=== PATIENT | male | born 1965 | race Caucasian/White ===

== ENCOUNTER 2016-12-31 11:25 | Inpatient (IN) | payer OTHER ==
[2016-12-31 12:43] VITALS: BMI 27.8
--- NOTE | 2016-12-31 15:12 | HP ---
CIWA Score - CIWA Score Nausea/Vomitin Muscle Tremors: 5 Anxiety: 5 Agitation: 3 Paroxysmal Sweats: 1-Minimal Palms Moist Orientation: 0-Oriented Tacttile Disturbances: 3-Moderate Itch/Numb/Burn Auditory Disturbances: 0-None Visual Disturbances: 0-None Headache: 0-None Present CIWA-Ar Total Score: 20 Admission ROS BHS - HPI Chief Complaint: DETOX TX FOR ALCOHOL AND COCAINE DEPENDENCE Allergies/Adverse Reactions: Allergies Allergy/AdvReac Type Severity Reaction Status Date / Time No Known Allergies Allergy Verified 12/31/16 13:07 History of Present Illness: 51 Y/O H/M WITH A HX OF ALCOHOL AND COCAINE DEPENDENCE SEEKING DETOX TX Exam Limitations: No Limitations, Intoxication - Ebola screening Have you traveled outside of the country in the last 21 days: No Have you had contact with anyone from an Ebola affected area: No Have you been sick,other than usual withdrawal symptoms: No - Review of Systems Constitutional: Chills, Loss of Appetite, Night Sweats, Changes in sleep, Unintentional Wgt. Loss EENT: reports: Blurred Vision, Tearing, Nose Congestion, Dental Problems ( DENTURES,KENRICK.) Respiratory: reports: No Symptoms reported Cardiac: reports: Lightheadedness GI: reports: Diarrhea, Nausea, Poor Appetite, Poor Fluid Intake, Vomiting : reports: No Symptoms Reported Musculoskeletal: reports: Back Pain, Joint Pain, Muscle Pain Integumentary: reports: Dryness (HX PSORIASIS), Flushing Neuro: reports: Headache, Tremors, Unsteady Gait, Dizziness Endocrine: reports: No Symptoms Reported Hematology: reports: No Symptoms Reported Psychiatric: reports: Orientated x3, Anxious, Depressed Other Systems: Reviewed and Negative Patient History - Patient Medical History Hx Anemia: No Hx Asthma: No Hx Chronic Obstructive Pulmonary Disease (COPD): No Hx Cancer: No Hx Cardiac Disorders: Yes (heart murmur) Hx Congestive Heart Failure: No Hx Hypertension: Yes (ON MEDS) Hx Hypercholesterolemia: No Hx Pacemaker: No HX Cerebrovascular Accident: No Hx Seizures: No Hx Dementia: No Hx Diabetes: No Hx Gastrointestinal Disorders: No Hx Liver Disease: No Hx Genitourinary Disorders: No Hx Sexually Transmitted Disorders: No Hx Renal Disease (ESRD): No Hx Thyroid Disease: No Hx Human Immunodeficiency Virus (HIV): No (06/09; NEGATIVE) Hx Hepatitis C: No Hx Depression: No Hx Suicide Attempt: No Hx Bipolar Disorder: No Hx Schizophrenia: No - Patient Surgical History Past Surgical History: Yes Hx Neurologic Surgery: No Hx Cataract Extraction: No Hx Cardiac Surgery: No Hx Lung Surgery: No Hx Breast Surgery: No Hx Breast Biopsy: No Hx Abdominal Surgery: No Hx Appendectomy: No Hx Cholecystectomy: No Hx Genitourinary Surgery: No Hx Orthopedic Surgery: No Other Surgical History: FACIAL TRUAMA FROM FALL ON INTOXICATION--INJURY REPAIR IN 10/2016 Anesthesia Reaction: No - PPD History Previous Implant?: Yes Documented Results: Negative w/proof Implanted On Prior [facility] Admission?: Yes Date: 08/25/15 Results: 0 mm PPD to be Administered?: Yes - Reproductive History Patient is a Female of Child Bearing Age (11 -55 yrs old): No (MALE) - Smoking Cessation Smoking history: Never smoked Have you smoked in the past 12 months: No Hx Chewing Tobacco Use: No Initiated information on smoking cessation: No - Substance & Tx. History Hx Alcohol Use: Yes (BEER) Hx Substance Use: Yes (COCAINE) Hx Substance Use Treatment: Yes ([facility]) - Substances Abused Cocaine Route: Inhalation Frequency: 1-2 times per week Amount used: $20 Age of first use: 18 Date of Last Use: 12/24/16 Alcohol-beer Route: Oral Frequency: Daily Amount used: 3-5 (40 oz.) Age of first use: 15 Date of Last Use: 12/31/16 Family Disease History - Family Disease History Family Disease History: Other: Father (ETOH DEPENDENT) Admission Physical Exam BHS - Vital Signs Vital Signs: Vital Signs - 24 hr 12/31/16 12:40 Temperature 97.3 F L Pulse Rate 101 H Respiratory 18 Rate Blood Pressure 143/94 - Physical General Appearance: Yes: Moderate Distress, Alcohol on Breath, Intoxicated, Irritable, Anxious HEENTM: Yes: EOMI, Normocephalic, RONNIE, Pharynx Normal, Photophobia, Nasal Congestion, Rhinorrhea, Other (FACIAL SCAR ON RIGHT SIDE S/P TRUAMA) Respiratory: Yes: Chest Non-Tender, Lungs Clear, Normal Breath Sounds, No Respiratory Distress Neck: Yes: Supple, Trachea in good position Breast: Yes: Breast Exam Deferred Cardiology: Yes: Regular Rhythm, S1, S2, Tachycardia Abdominal: Yes: Normal Bowel Sounds, Non Tender, Soft Genitourinary: Yes: Other (N/C) Back: Yes: Within Normal Limits Musculoskeletal: Yes: full range of Motion, Gait Steady Extremities: Yes: Normal Range of Motion, Non-Tender Neurological: Yes: manager storage II-XII NML intact, Fully Oriented, Alert Integumentary: Yes: Dry, Warm, Other (FACIAL SKIN FLUSHING) Lymphatic: Yes: Within Normal Limits - Diagnostic (1) Alcohol dependence with withdrawal Current Visit: Yes Status: Acute Qualifiers: Complication of substance-induced condition: uncomplicated Qualified Code(s): F10.230 - Alcohol dependence with withdrawal, uncomplicated (2) Cocaine abuse Current Visit: Yes Status: Chronic (3) Essential hypertension Current Visit: Yes Status: Chronic (4) Psoriasis Current Visit: Yes Status: Chronic Cleared for Admission [facility] - Detox or Rehab [facility] Level of Care: Medically Managed Detox Regimen/Protocol: Librium [facility] Breath Alcohol Content Breath Alcohol Content: 0.137 Urine Drug Screen - Results Drug Screen Negative: Yes
[2016-12-31] MEDS ORDERED: ACETAMINOPHEN 325 MG TABLET (FP) PO PRN (15:20)
[2016-12-31] MEDS ORDERED: MAG HYDROX/AL HYDROX/SIMETH 30 ML UNIT-DOSE CUP PO PRN (15:20)
[2016-12-31] MEDS ORDERED: MENTHOL/PHENOL 1 EACH UD MM PRN (15:20)
[2016-12-31] MEDS ORDERED: IBUPROFEN 400 MG TABLET (FP) PO PRN (15:20)
[2016-12-31] MEDS ORDERED: MAGNESIUM CITRATE 300 ML BOTTLE PO PRN (15:20)
[2016-12-31] MEDS ORDERED: P-EPHED 60MG/TRIPROLIDI 2.5MG TABLET PO PRN (15:20)
[2016-12-31] MEDS ORDERED: guaiFENesin/D-METHORPHAN HB 10 ML UNIT-DOSE CUPS PO PRN (15:20)
[2016-12-31] MEDS ORDERED: MAGNESIUM HYDROX 2400MG/30ML ORAL SUSPENSION 30 ML CUP PO PRN (15:20)
[2016-12-31] MEDS ORDERED: LOPERAMIDE HCL 2 MG CAPSULE PO PRN (15:20)
[2016-12-31] MEDS ORDERED: chlordiazePOXIDE HCL 25 MG CAPSULE PO ONE (15:24)
[2016-12-31] MEDS: GABAPENTIN 100 MG CAPSULE (FP) PO SCH ×2 (17:26→22:11)
[2016-12-31] MEDS: chlordiazePOXIDE HCL 25 MG CAPSULE PO SCH ×2 (17:26→22:11)
[2016-12-31] MEDS: ENALAPRIL MALEATE 10 MG TABLET (FP) PO SCH (17:26)
[2016-12-31 20:31] LABS: URINE APPEARANCE CLEAR; URINE BILIRUBIN NEGATIVE (NEGATIVE); URINE BLOOD NEGATIVE (NEGATIVE); URINE COLOR LTYELLOW; URINE GLUCOSE (UA) NEGATIVE (NEGATIVE); URINE KETONE NEGATIVE (NEGATIVE); URINE LEUK ESTERASE NEGATIVE (NEGATIVE); URINE NITRITE NEGATIVE (NEGATIVE); URINE PROTEIN NEGATIVE (NEGATIVE); URINE UROBILINOGEN NEGATIVE E.U./dl (0.2-1.0)
[2016-12-31] MEDS: TRIAMCINOLONE ACET 0.1% CREAM 80 GM TUBE TP SCH (22:10)
[2016-12-31] MEDS: THIAMINE HCL 100 MG TABLET (FP) PO SCH (22:10)
[2016-12-31] MEDS: diphenhydrAMINE HCL 50 MG CAPSULE PO PRN (22:11)
[2017-01-01] MEDS: chlordiazePOXIDE HCL 25 MG CAPSULE PO SCH ×4 (05:35→22:22)
[2017-01-01] MEDS: GABAPENTIN 100 MG CAPSULE (FP) PO SCH ×3 (05:35→22:22)
[2017-01-01 09:57] LABS: ALK PHOS 112 U/L (45-117); ANION GAP 8 (8-16); BILIRUBIN,TOTAL 0.4 mg/dL (0.2-1.0); CALCIUM 9.1 mg/dL (8.5-10.1); CO2 28 mmol/L (21-32); CREATININE 0.7 mg/dL (0.7-1.3); GLUCOSE,RANDOM 151 mg/dL (74-106); SGOT/AST 42 U/L (15-37); SGPT/ALT 32 U/L (12-78)
[2017-01-01 10:06] LABS: MCH 29.7 pg (25.7-33.7); MCHC 33.4 g/dl (32.0-35.9); MEAN PLT VOLUME 7.7 fl (7.5-11.1); PLATELET COUNT 182 K/MM3 (134-434); RDW 13.8 % (11.9-15.9); WHITE BLOOD COUNT 6.9 K/mm3 (4.0-10.0)
[2017-01-01] MEDS: PRENATAL VITAMINS W/ FOLIC ACID TABLET (FP) PO SCH (10:20)
[2017-01-01] MEDS: ENALAPRIL MALEATE 10 MG TABLET (FP) PO SCH (10:20)
[2017-01-01] MEDS: TRIAMCINOLONE ACET 0.1% CREAM 80 GM TUBE TP SCH ×2 (10:21→22:23)
--- NOTE | 2017-01-01 10:30 | PN ---
[facility] CIWA - CIWA Score Nausea/Vomitin-No Nausea/No Vomiting Muscle Tremors: 6 Anxiety: 4-Mod. Anxious/Guarded Agitation: 3 Paroxysmal Sweats: 2 Orientation: 0-Oriented Tacttile Disturbances: 3-Moderate Itch/Numb/Burn Auditory Disturbances: 0-None Visual Disturbances: 0-None Headache: 0-None Present CIWA-Ar Total Score: 18 BHS Progress Note (SOAP) Subjective: ANXIETY,TREMORS,SWEATS. Objective: 01/01/17 10:24 Vital Signs Temperature 96.0 F L 01/01/17 09:44 Pulse Rate 91 H 01/01/17 09:44 Respiratory Rate 18 01/01/17 09:44 Blood Pressure 155/97 01/01/17 09:44 O2 Sat by Pulse Oximetry (%) Laboratory Last Values WBC 6.9 K/mm3 (4.0-10.0) 01/01/17 06:00 RBC 4.57 M/mm3 (4.00-5.60) 01/01/17 06:00 Hgb 13.6 GM/dL (11.7-16.9) 01/01/17 06:00 Hct 40.7 % (35.4-49) 01/01/17 06:00 MCV 89.0 fl (80-96) 01/01/17 06:00 MCHC 33.4 g/dl (32.0-35.9) 01/01/17 06:00 RDW 13.8 % (11.9-15.9) 01/01/17 06:00 Plt Count 182 K/MM3 (134-434) D 01/01/17 06:00 MPV 7.7 fl (7.5-11.1) 01/01/17 06:00 Sodium 137 mmol/L (136-145) 01/01/17 06:00 Potassium 4.2 mmol/L (3.5-5.1) 01/01/17 06:00 Chloride 101 mmol/L (98-107) 01/01/17 06:00 Carbon Dioxide 28 mmol/L (21-32) 01/01/17 06:00 Anion Gap 8 (8-16) 01/01/17 06:00 BUN 7 mg/dL (7-18) 01/01/17 06:00 Creatinine 0.7 mg/dL (0.7-1.3) 01/01/17 06:00 Creat Clearance w eGFR > 60 (>60) 01/01/17 06:00 Random Glucose 151 mg/dL (74-106) H D 01/01/17 06:00 Calcium 9.1 mg/dL (8.5-10.1) 01/01/17 06:00 Total Bilirubin 0.4 mg/dL (0.2-1.0) D 01/01/17 06:00 AST 42 U/L (15-37) H 01/01/17 06:00 ALT 32 U/L (12-78) D 01/01/17 06:00 Alkaline Phosphatase 112 U/L (45-117) 01/01/17 06:00 Total Protein 8.0 g/dl (6.4-8.2) 01/01/17 06:00 Albumin 4.0 g/dl (3.4-5.0) 01/01/17 06:00 Urine Color Ltyellow 12/31/16 13:00 Urine Appearance Clear 12/31/16 13:00 Urine pH 5.0 (5.0-8.0) 12/31/16 13:00 Ur Specific [place] 1.011 (1.001-1.035) 12/31/16 13:00 Urine Protein Negative (NEGATIVE) 12/31/16 13:00 Urine Glucose (UA) Negative (NEGATIVE) 12/31/16 13:00 Urine Ketones Negative (NEGATIVE) 12/31/16 13:00 Urine Blood Negative (NEGATIVE) 12/31/16 13:00 Urine Nitrite Negative (NEGATIVE) 12/31/16 13:00 Urine Bilirubin Negative (NEGATIVE) 12/31/16 13:00 Urine Urobilinogen Negative E.U./dl (0.2-1.0) 12/31/16 13:00 Ur Leukocyte Esterase Negative (NEGATIVE) 12/31/16 13:00 Hepatitis C Antibody 0.2 s/co ratio (0.0-0.9) 12/31/16 13:00 Assessment: 01/01/17 10:25 WITHDRAWAL SX Plan: CONTINUE DETOX ADDED LIBRIUM 50 MG PO AT 2 PM TODAY
--- NOTE | 2017-01-01 10:59 | EKG ---
Test Reason : Blood Pressure : / mmHG Vent. Rate : 091 BPM Atrial Rate : 091 BPM P-R Int : 128 ms QRS Dur : 096 ms QT Int : 342 ms P-R-T Axes : 056 028 028 degrees QTc Int : 420 ms NORMAL SINUS RHYTHM POSSIBLE LEFT ATRIAL ENLARGEMENT SEPTAL INFARCT , AGE UNDETERMINED ABNORMAL ECG NO PREVIOUS ECGS AVAILABLE Confirmed by ANUSHA GLASS MD ([id number]) on 01/01/2017 10:59:16 AM Referred By: Confirmed By:ANUSHA GLASS MD
[2017-01-01] MEDS ORDERED: chlordiazePOXIDE HCL 25 MG CAPSULE PO ONE (14:00)
--- NOTE | 2017-01-01 15:58 | EKG ---
Test Reason : Blood Pressure : / mmHG Vent. Rate : 083 BPM Atrial Rate : 083 BPM P-R Int : 134 ms QRS Dur : 096 ms QT Int : 364 ms P-R-T Axes : 059 017 029 degrees QTc Int : 427 ms NORMAL SINUS RHYTHM NORMAL ECG WHEN COMPARED WITH ECG OF 31-DEC-2016 17:53, NO SIGNIFICANT CHANGE WAS FOUND Confirmed by ANUSHA GLASS MD ([id number]) on 01/01/2017 3:57:45 PM Referred By: Confirmed By:ANUSHA GLASS MD
[2017-01-01] MEDS: hydrOXYzine PAMOATE 25 MG CAPSULE (FP) PO PRN (17:34)
[2017-01-01] MEDS: chlordiazePOXIDE HCL 25 MG CAPSULE PO PRN (21:30)
[2017-01-01] MEDS: diphenhydrAMINE HCL 50 MG CAPSULE PO PRN (22:23)
[2017-01-01] MEDS: THIAMINE HCL 100 MG TABLET (FP) PO SCH (23:10)
[2017-01-02] MEDS: chlordiazePOXIDE HCL 25 MG CAPSULE PO SCH ×2 (05:29→10:34)
[2017-01-02] MEDS: GABAPENTIN 100 MG CAPSULE (FP) PO SCH ×3 (05:29→22:29)
[2017-01-02] MEDS: TRIAMCINOLONE ACET 0.1% CREAM 80 GM TUBE TP SCH ×2 (10:34→22:56)
[2017-01-02] MEDS: ENALAPRIL MALEATE 10 MG TABLET (FP) PO SCH ×2 (10:34→22:29)
[2017-01-02] MEDS: PRENATAL VITAMINS W/ FOLIC ACID TABLET (FP) PO SCH (10:34)
--- NOTE | 2017-01-02 10:45 | PN ---
S CIWA - CIWA Score Nausea/Vomitin-Mild Nausea/No Vomiting Muscle Tremors: 5 Anxiety: 4-Mod. Anxious/Guarded Agitation: 5 Paroxysmal Sweats: 3 Orientation: 0-Oriented Tacttile Disturbances: 0-None Auditory Disturbances: 0-None Visual Disturbances: 0-None Headache: 0-None Present CIWA-Ar Total Score: 18 BHS Progress Note (SOAP) Subjective: Anxiety,tremors,sweating,interrupted sleep,restless Objective: 01/02/17 10:44 Vital Signs - 8 hr 01/02/17 01/02/17 01/02/17 03:30 06:47 09:47 Temperature 96.4 F L 97.2 F L Pulse Rate 84 99 H Respiratory 18 18 20 Rate Blood Pressure 158/103 160/106 Laboratory Tests 12/31/16 12/31/16 01/01/17 13:00 13:00 06:00 WBC 6.9 RBC 4.57 Hgb 13.6 Hct 40.7 MCV 89.0 MCHC 33.4 RDW 13.8 Plt Count 182 D MPV 7.7 Sodium Potassium Chloride Carbon Dioxide Anion Gap BUN Creatinine Creat Clearance w eGFR Random Glucose Calcium Total Bilirubin AST ALT Alkaline Phosphatase Total Protein Albumin Urine Color Ltyellow Urine Appearance Clear Urine pH 5.0 Ur Specific [place] 1.011 Urine Protein Negative Urine Glucose (UA) Negative Urine Ketones Negative Urine Blood Negative Urine Nitrite Negative Urine Bilirubin Negative Urine Urobilinogen Negative Ur Leukocyte Esterase Negative RPR Titer Hepatitis C Antibody 0.2 01/01/17 01/01/17 06:00 06:00 WBC RBC Hgb Hct MCV MCHC RDW Plt Count MPV Sodium 137 Potassium 4.2 Chloride 101 Carbon Dioxide 28 Anion Gap 8 BUN 7 Creatinine 0.7 Creat Clearance w eGFR > 60 Random Glucose 151 H D Calcium 9.1 Total Bilirubin 0.4 D AST 42 H ALT 32 D Alkaline Phosphatase 112 Total Protein 8.0 Albumin 4.0 Urine Color Urine Appearance Urine pH Ur Specific [place] Urine Protein Urine Glucose (UA) Urine Ketones Urine Blood Urine Nitrite Urine Bilirubin Urine Urobilinogen Ur Leukocyte Esterase RPR Titer Nonreactive Hepatitis C Antibody labs noted Assessment: 01/02/17 10:44 Withdrawal sx. Plan: Copntinue detox
[2017-01-02] MEDS ORDERED: chlordiazePOXIDE HCL 25 MG CAPSULE PO ONE (14:00)
[2017-01-02] MEDS: chlordiazePOXIDE 5 MG CAPSULE PO SCH ×2 (17:55→22:29)
[2017-01-02] MEDS: hydrOXYzine PAMOATE 25 MG CAPSULE (FP) PO PRN (17:55)
[2017-01-02] MEDS: THIAMINE HCL 100 MG TABLET (FP) PO SCH (22:29)
[2017-01-02] MEDS: chlordiazePOXIDE HCL 25 MG CAPSULE PO PRN (22:30)
[2017-01-02] MEDS: diphenhydrAMINE HCL 50 MG CAPSULE PO PRN (22:32)
[2017-01-03] MEDS: chlordiazePOXIDE 5 MG CAPSULE PO SCH ×2 (05:44→10:25)
[2017-01-03] MEDS: GABAPENTIN 100 MG CAPSULE (FP) PO SCH ×3 (05:44→22:23)
[2017-01-03] MEDS: PRENATAL VITAMINS W/ FOLIC ACID TABLET (FP) PO SCH (10:25)
[2017-01-03] MEDS: ENALAPRIL MALEATE 10 MG TABLET (FP) PO SCH ×2 (10:25→22:23)
[2017-01-03] MEDS: TRIAMCINOLONE ACET 0.1% CREAM 80 GM TUBE TP SCH ×2 (10:25→22:22)
[2017-01-03] MEDS: chlordiazePOXIDE HCL 25 MG CAPSULE PO PRN (12:08)
--- NOTE | 2017-01-03 13:48 | PN ---
BHS Progress Note (SOAP) Subjective: Interrupted Sleep, Restlessness, Tremors, Body Aches Objective: Vital Signs Period Temp Pulse Resp BP Sys/Estrada Pulse Ox Last 24 Hr 95.6 F-97.4 F 86-120 18-20 139-152/83-100 Laboratory Last Values WBC 6.9 K/mm3 (4.0-10.0) 01/01/17 06:00 RBC 4.57 M/mm3 (4.00-5.60) 01/01/17 06:00 Hgb 13.6 GM/dL (11.7-16.9) 01/01/17 06:00 Hct 40.7 % (35.4-49) 01/01/17 06:00 MCV 89.0 fl (80-96) 01/01/17 06:00 MCHC 33.4 g/dl (32.0-35.9) 01/01/17 06:00 RDW 13.8 % (11.9-15.9) 01/01/17 06:00 Plt Count 182 K/MM3 (134-434) D 01/01/17 06:00 MPV 7.7 fl (7.5-11.1) 01/01/17 06:00 Sodium 137 mmol/L (136-145) 01/01/17 06:00 Potassium 4.2 mmol/L (3.5-5.1) 01/01/17 06:00 Chloride 101 mmol/L (98-107) 01/01/17 06:00 Carbon Dioxide 28 mmol/L (21-32) 01/01/17 06:00 Anion Gap 8 (8-16) 01/01/17 06:00 BUN 7 mg/dL (7-18) 01/01/17 06:00 Creatinine 0.7 mg/dL (0.7-1.3) 01/01/17 06:00 Creat Clearance w eGFR > 60 (>60) 01/01/17 06:00 Random Glucose 151 mg/dL (74-106) H D 01/01/17 06:00 Calcium 9.1 mg/dL (8.5-10.1) 01/01/17 06:00 Total Bilirubin 0.4 mg/dL (0.2-1.0) D 01/01/17 06:00 AST 42 U/L (15-37) H 01/01/17 06:00 ALT 32 U/L (12-78) D 01/01/17 06:00 Alkaline Phosphatase 112 U/L (45-117) 01/01/17 06:00 Total Protein 8.0 g/dl (6.4-8.2) 01/01/17 06:00 Albumin 4.0 g/dl (3.4-5.0) 01/01/17 06:00 Urine Color Ltyellow 12/31/16 13:00 Urine Appearance Clear 12/31/16 13:00 Urine pH 5.0 (5.0-8.0) 12/31/16 13:00 Ur Specific [place] 1.011 (1.001-1.035) 12/31/16 13:00 Urine Protein Negative (NEGATIVE) 12/31/16 13:00 Urine Glucose (UA) Negative (NEGATIVE) 12/31/16 13:00 Urine Ketones Negative (NEGATIVE) 12/31/16 13:00 Urine Blood Negative (NEGATIVE) 12/31/16 13:00 Urine Nitrite Negative (NEGATIVE) 12/31/16 13:00 Urine Bilirubin Negative (NEGATIVE) 12/31/16 13:00 Urine Urobilinogen Negative E.U./dl (0.2-1.0) 12/31/16 13:00 Ur Leukocyte Esterase Negative (NEGATIVE) 12/31/16 13:00 RPR Titer Nonreactive (NONREACTIVE) 01/01/17 06:00 Hepatitis C Antibody 0.2 s/co ratio (0.0-0.9) 12/31/16 13:00 Assessment: withdrawal symptoms Plan: Continue Detox
[2017-01-03] MEDS: chlordiazePOXIDE HCL 10 MG CAPSULE PO SCH ×2 (18:00→22:23)
[2017-01-03] MEDS: diphenhydrAMINE HCL 50 MG CAPSULE PO PRN (22:24)
[2017-01-03] MEDS: THIAMINE HCL 100 MG TABLET (FP) PO SCH (22:25)
[2017-01-04] MEDS: GABAPENTIN 100 MG CAPSULE (FP) PO SCH (06:01)
[2017-01-04] MEDS: chlordiazePOXIDE HCL 10 MG CAPSULE PO SCH (06:01)
[2017-01-04 06:49] VITALS: BP 145/99; PULSE 98; TEMP 97.1
[2017-01-04] MEDS: PRENATAL VITAMINS W/ FOLIC ACID TABLET (FP) PO SCH (09:30)
[2017-01-04] MEDS: ENALAPRIL MALEATE 10 MG TABLET (FP) PO SCH (09:30)
--- NOTE | 2017-01-04 19:41 | DS ---
[facility] Detox Discharge Summary Admission Date: 12/31/16 Discharge Date: 01/04/17 - History Present History: Alcohol Dependence, Cocaine Dependence Pertinent Past History: HTN Psoriasis - Physical Exam Results Vital Signs: Vital Signs Temperature 97.1 F L 01/04/17 06:48 Pulse Rate 98 H 01/04/17 06:48 Respiratory Rate 18 01/04/17 06:48 Blood Pressure 145/99 01/04/17 06:48 O2 Sat by Pulse Oximetry (%) Pertinent Admission Physical Exam Findings: Withdrawal sx. Laboratory Last Values WBC 6.9 K/mm3 (4.0-10.0) 01/01/17 06:00 RBC 4.57 M/mm3 (4.00-5.60) 01/01/17 06:00 Hgb 13.6 GM/dL (11.7-16.9) 01/01/17 06:00 Hct 40.7 % (35.4-49) 01/01/17 06:00 MCV 89.0 fl (80-96) 01/01/17 06:00 MCHC 33.4 g/dl (32.0-35.9) 01/01/17 06:00 RDW 13.8 % (11.9-15.9) 01/01/17 06:00 Plt Count 182 K/MM3 (134-434) D 01/01/17 06:00 MPV 7.7 fl (7.5-11.1) 01/01/17 06:00 Sodium 137 mmol/L (136-145) 01/01/17 06:00 Potassium 4.2 mmol/L (3.5-5.1) 01/01/17 06:00 Chloride 101 mmol/L (98-107) 01/01/17 06:00 Carbon Dioxide 28 mmol/L (21-32) 01/01/17 06:00 Anion Gap 8 (8-16) 01/01/17 06:00 BUN 7 mg/dL (7-18) 01/01/17 06:00 Creatinine 0.7 mg/dL (0.7-1.3) 01/01/17 06:00 Creat Clearance w eGFR > 60 (>60) 01/01/17 06:00 Random Glucose 151 mg/dL (74-106) H D 01/01/17 06:00 Calcium 9.1 mg/dL (8.5-10.1) 01/01/17 06:00 Total Bilirubin 0.4 mg/dL (0.2-1.0) D 01/01/17 06:00 AST 42 U/L (15-37) H 01/01/17 06:00 ALT 32 U/L (12-78) D 01/01/17 06:00 Alkaline Phosphatase 112 U/L (45-117) 01/01/17 06:00 Total Protein 8.0 g/dl (6.4-8.2) 01/01/17 06:00 Albumin 4.0 g/dl (3.4-5.0) 01/01/17 06:00 Urine Color Ltyellow 12/31/16 13:00 Urine Appearance Clear 12/31/16 13:00 Urine pH 5.0 (5.0-8.0) 12/31/16 13:00 Ur Specific [place] 1.011 (1.001-1.035) 12/31/16 13:00 Urine Protein Negative (NEGATIVE) 12/31/16 13:00 Urine Glucose (UA) Negative (NEGATIVE) 12/31/16 13:00 Urine Ketones Negative (NEGATIVE) 12/31/16 13:00 Urine Blood Negative (NEGATIVE) 12/31/16 13:00 Urine Nitrite Negative (NEGATIVE) 12/31/16 13:00 Urine Bilirubin Negative (NEGATIVE) 12/31/16 13:00 Urine Urobilinogen Negative E.U./dl (0.2-1.0) 12/31/16 13:00 Ur Leukocyte Esterase Negative (NEGATIVE) 12/31/16 13:00 RPR Titer Nonreactive (NONREACTIVE) 01/01/17 06:00 Hepatitis C Antibody 0.2 s/co ratio (0.0-0.9) 12/31/16 13:00 labs noted - Treatment Hospital Course: Detox Protocol Followed, Detoxed Safely, Responded well, Discharged Condition Good, Rehab Referral Accepted - Medication Discharge Medications: Ambulatory Orders Clobetasol Prop 0.05% Top Cr [Temovate (Nf)] 30 gm NR BID 12/31/16 Enalapril Maleate [Vasotec] 20 mg PO DAILY 12/31/16 Gabapentin [Neurontin -] 100 mg PO TID 12/31/16 Unobtainable [Unobtainable] 12/31/16 - Diagnosis (1) Alcohol dependence with withdrawal Status: Acute Qualifiers: Complication of substance-induced condition: uncomplicated Qualified Code(s): F10.230 - Alcohol dependence with withdrawal, uncomplicated (2) Essential hypertension Status: Chronic (3) Psoriasis Status: Chronic (4) Cocaine dependence, uncomplicated Status: Acute - AMA Did Patient Leave Against Medical Advice: No
== END 2017-01-04 09:33 | disposition home or self-care (01) | DRG 774 ==
LOC: YASAS 11:25 → Y3N 14:36
PROVIDERS: ADMIT Internal Medicine; ATTEND Internal Medicine
PROC: HZ2ZZZZ Detoxification Services for Substance Abuse Treatment (ICD-10-PCS; principal; 2017-01-04)
DX: F10.230 Alcohol dependence with withdrawal, uncomplicated (principal); F14.20 Cocaine dependence, uncomplicated; I10 Essential (primary) hypertension; L40.9 Psoriasis, unspecified
CPT/HCPCS: 36415; 80053; 81003; 85027; 86593; 93005; 93010

== ENCOUNTER 2017-02-20 10:43 | Inpatient (IN) | payer OTHER ==
--- NOTE | 2017-02-20 12:29 | PDOC ---
History of Present Illness - General Chief Complaint: Tremors Stated Complaint: withdrawls Time Seen by Provider: 02/20/17 11:02 - History of Present Illness Initial Comments: 02/20/17 12:28 CHIEF COMPLAINT: withdrawals HISTORY OF PRESENT ILLNESS: 51 yo M with hx of HTN (non compliant with medication), heart murmur, alcohol/cocaine/PCP abuse, presents to ED with "shakes and chest pain" since last night. Patient reports drinking three 40s and 2 22oz beers yesterday, last drink was last night and he woke up this morning "sweating, with cold sweats and chills." He reports that last night he had chest pain and felt like he couldn't breathe. He reports that he tried to go to detox at [address] [place] [address] last night but was denied admission. Per ex-, he was admitted to [facility] detox on 02/07 and discharged 02/10 and the detox center at [address] [place] [address] "said his librium level was too high, or it was too soon for him to get detox again through his insurance." No recent travel or sick contacts. PAST MEDICAL HISTORY: Denies past medical history FAMILY HISTORY: Denies SOCIAL HISTORY: Undomiciled, unemployed. Current alcohol abuse, hx of cocaine/ PCP abuse. SURGICAL HISTORY: ALLERGIES: No known drug allergies REVIEW OF SYSTEMS General/Constitutional: Denies fever or chills. Denies weakness, weight change. HEENT: Denies change in vision. Denies ear pain or discharge. Denies sore throat. Cardiovascular: "I feel a little chest pain now, it's hard for me to take a full breath." Respiratory: Denies cough, wheezing, or hemoptysis. Gastrointestinal: Denies nausea, vomiting, diarrhea or constipation. Denies rectal bleeding. Genitourinary: Denies dysuria, frequency, or change in urination. Musculoskeletal: Denies joint or muscle swelling or pain. Denies neck or back pain. Skin and breasts: Denies rash or easy bruising. Neurologic: Denies headache, vertigo, loss of consciousness, or loss of sensation. Psychiatric: "I feel shaky, and I can't stop moving." PHYSICAL EXAM General Appearance: Anxious appearing, tremulous, pacing back and forth in exam room. HEENT: EOMI, PERRLA, normal ENT inspection, normal voice, TMs normal, pharynx normal. No conjunctival pallor. No photophobia, scleral icterus. Respiratory/Chest: Lungs CTAB. Cardiovascular: RRR. S1, S2. Gastrointestinal/Abdominal: Normal bowel sounds. Abdomen soft, non-distended. No tenderness or rebound tenderness. No organomegaly, pulsatile mass, guarding , hernia, hepatomegaly, splenomegaly. Musculoskeletal/Extremities: Tremors to bilateral hands. FROM of all extremities, normal capillary refill. Pelvis Stable. No CVA tenderness. No tenderness to extremities, pedal edema, swelling, erythema or deformity. Integumentary: Appropriate color, dry, warm. No cyanosis, erythema, jaundice or rash Neurologic: behavioral assistant II-XII intact. Fully oriented, alert. Appropriate mood/affect. Motor strength 5/5. No appreciable EOM palsy, facial droop or sensory deficit. Past History - Past Medical History Allergies/Adverse Reactions: Allergies Allergy/AdvReac Type Severity Reaction Status Date / Time No Known Allergies Allergy Verified 02/20/17 10:46 Home Medications: Ambulatory Orders Enalapril Maleate [Vasotec] 20 mg PO DAILY 12/31/16 Pantoprazole Sodium 40 mg PO DAILY 02/20/17 Anemia: No Asthma: No Cancer: No Cardiac Disorders: Yes (heart murmur) CVA: No COPD: No CHF: No Dementia: No Diabetes: No GI Disorders: No Disorders: No HTN: Yes (ON MEDS) Hypercholesterolemia: No Kidney Stones: No Liver Disease: No Suicide Attempt (Hx): No Seizures: No Thyroid Disease: No - Surgical History Abdominal Surgery: No Appendectomy: No Cardiac Surgery: No Cholecystectomy: No Lung Surgery: No Neurologic Surgery: No Orthopedic Surgery: No - Reproductive History Testicular Surgery: No - Psycho/Social/Smoking Cessation Hx Anxiety: No Suicidal Ideation: No Smoking History: Never smoked Have you smoked in the past 12 months: No Information on smoking cessation initiated: No 'Breaking Loose' booklet given: 08/31/15 Hx Alcohol Use: Yes Drug/Substance Use Hx: No Substance Use Type: Alcohol, Cocaine Hx Substance Use Treatment: Yes ([facility]) *Physical Exam - Vital Signs Last Vital Signs Temp Pulse Resp BP Pulse Ox 97.9 F 107 H 18 137/77 97 02/20/17 10:46 02/20/17 10:46 02/20/17 10:46 02/20/17 10:46 02/20/17 10:46 ED Treatment Course - LABORATORY CBC & Chemistry Diagram: 02/20/17 12:50 02/20/17 12:40 Medical Decision Making - Medical Decision Making 02/20/17 16:53 51 yo M with hx of HTN (non compliant with medication), heart murmur, alcohol/ cocaine/PCP abuse, presents to ED with "shakes and chest pain" since last night. VS remarkable for HR 107. -CBC, CMP, cardiac profile, ETOH, Utox -50 mg Librium -Banana bag 02/20/17 16:53 Labs unremarkable. Will repeat trop. 2nd trop negative. Called 2 [facility] detox center; patient cannot go to detox due to having just left detox on 02/10 - insurance will not cover detox again within 30 days. Due to risk of DT secondary to withdrawal, will admit to inpatient services for ETOH withdrawal. *DC/Admit/Observation/Transfer Diagnosis at time of Disposition: Alcohol dependence with withdrawal Qualifiers: Complication of substance-induced condition: with unspecified complication Qualified Code(s): F10.239 - Alcohol dependence with withdrawal, unspecified - Discharge Dispostion Admit: Yes - Referrals Referrals: Karlie Falcon [Primary Care Provider] -
[2017-02-20 13:24] LABS: INR 1.13 (0.82-1.09); PROTHROMBIN TIME (PATIENT) 12.5 SEC (9.98-11.88)
[2017-02-20] MEDS ORDERED: FOLIC ACID INJECTION - 1 MG, THIAMINE HCL 100 MG, MULTIVIT INJECTION ADULT 10 ML in SOD... IVPB ONE (13:24)
[2017-02-20] MEDS ORDERED: chlordiazePOXIDE HCL 25 MG CAPSULE PO ONE (13:24)
[2017-02-20] MEDS ORDERED: chlordiazePOXIDE HCL 25 MG CAPSULE ONE (13:36)
[2017-02-20 13:37] LABS: ANION GAP 11 (8-16); BILIRUBIN,TOTAL 0.5 mg/dL (0.2-1.0); CALCIUM 9.1 mg/dL (8.5-10.1); CO2 27 mmol/L (21-32); COCKROFT - GAULT 112.13; CREATININE 0.9 mg/dL (0.7-1.3); GLUCOSE,RANDOM 98 mg/dL (74-106); MAGNESIUM 1.9 mg/dL (1.8-2.4); SGOT/AST 42 U/L (15-37); SGPT/ALT 57 U/L (12-78); TOT PROT 8.6 g/dl (6.4-8.2)
[2017-02-20 13:40] LABS: ALK PHOS 179 U/L (45-117); TROPONIN I < 0.02 ng/ml (0.00-0.05)
[2017-02-20 14:14] LABS: EOSINOPHIL 3.2 % (0-4.5); MCHC 33.5 g/dl (32.0-35.9); MEAN CELL VOLUME 86.8 fl (80-96); MEAN PLT VOLUME 8.1 fl (7.5-11.1); NEUTROPHILS 76.3 % (42.8-82.8); PLATELET COUNT 242 K/MM3 (134-434); RDW 13.8 % (11.9-15.9); WHITE BLOOD COUNT 12.4 K/mm3 (4.0-10.0)
[2017-02-20 17:10] LABS: URINE MARIJUANA THC NEGATIVE ng/ml (CUTOFF=50)
[2017-02-20 17:12] LABS: TROPONIN I < 0.02 ng/ml (0.00-0.05)
--- NOTE | 2017-02-20 17:56 | HP ---
CHIEF COMPLAINT: "im withdrawing" PCP: none HISTORY OF PRESENT ILLNESS: This is a 51 yo M with pmh of HTN (noncompliant with enalapril), psoriasis and ETOH abuse (in detox several times this yr last at [facility] 02/07-02/10) as well as cocaine and marijuana abuse, who present with complain of EtOH withdrawal including shakes and chest pain. He states his last drink was last night, at which time he drank 3 40's and 2 22 oz beers. He drinks daily. He needs to stop drinking because of housing placement requirement and now he lives in homeless shelters. He was denied admission to [facility] yesterday because of insurance issue. he reports having intermittent reproducible chest pain yesterday but not today. He also reports tremors, anxiety and diaphoresis. He denies diarrhea, n/v , sz of hallucination. He has never had a sz or hallucination. he has a chronic dry cough. He denies sob, dizziness, h/a, dysuria, constipation. Last cocaine use 1 w ago ER course was notable for: (1)labs (2)cxr (3)librium, folic acid Recent Travel: denies PAST MEDICAL HISTORY: as above PAST SURGICAL HISTORY: denies Social History: homeless Smoking: denies Alcohol:abuse Drugs: cocaine, marijuana Family History: heart disease in father Allergies No Known Allergies Allergy (Verified 02/20/17 10:46) HOME MEDICATIONS: Home Medications Medication Instructions Recorded Enalapril Maleate [Vasotec] 20 mg PO DAILY 12/31/16 Pantoprazole Sodium 40 mg PO DAILY 02/20/17 REVIEW OF SYSTEMS CONSTITUTIONAL: Absent: fever, chills, generalized weakness HEENT: Absent: rhinorrhea, nasal congestion, throat pain CARDIOVASCULAR: Absent: chest pain, syncope, palpitations, edema RESPIRATORY: Absent: shortness of breath, orthopnea, wheezing, stridor, hemoptysis GASTROINTESTINAL: Absent: abdominal pain, abdominal distension, nausea, vomiting, diarrhea, constipation GENITOURINARY: Absent: dysuria MUSCULOSKELETAL: Absent: myalgia, arthralgia SKIN: Absent: itching, pallor HEMATOLOGIC/IMMUNOLOGIC: Absent: frequent infections ENDOCRINE: Absent: unexplained weight gain, unexplained weight loss NEUROLOGIC: Absent: headache, focal weakness or paresthesias PSYCHIATRIC: Absent: depression, suicidal or homicidal ideation, hallucinations. PHYSICAL EXAMINATION Vital Signs - 24 hr 02/20/17 10:46 Temperature 97.9 F Pulse Rate 107 H Respiratory 18 Rate Blood Pressure 137/77 O2 Sat by Pulse 97 Oximetry (%) GENERAL: Awake, alert, and fully oriented, in no acute distress. HEAD: Normal with no signs of trauma. EYES: Pupils equal, round and reactive to light, extraocular movements intact, sclera anicteric, conjunctiva clear. No lid lag., mild hor nystagmus EARS, NOSE, THROAT: Moist mucous membranes. NECK: supple without JVD LUNGS: mild bibasilar crackles HEART: Regular rate and rhythm, normal S1 and S2 grade 2 syst ej murmur, split s1 ABDOMEN: Soft, nontender, not distended, normoactive bowel sounds, no guarding, no rebound, no masses. mild hepatomegaly MUSCULOSKELETAL: No CVA tenderness. UPPER EXTREMITIES: 2+ pulses, warm, well-perfused. No cyanosis. No clubbing. No peripheral edema. LOWER EXTREMITIES: 2+ pulses, warm, well-perfused. No calf tenderness. No peripheral edema. NEUROLOGICAL: Cranial nerves II-XII grossly intact. Normal speech. PSYCHIATRIC: Cooperative. Good eye contact. Appropriate mood and affect. SKIN: Warm, dry diffuse psoriasis on back, trunk, legs Laboratory Results - last 24 hr 02/20/17 02/20/17 02/20/17 12:40 12:40 12:40 WBC RBC Hgb Hct MCV MCHC RDW Plt Count MPV Neutrophils % Lymphocytes % Monocytes % Eosinophils % Basophils % INR 1.13 Sodium 138 Potassium 4.6 Chloride 100 Carbon Dioxide 27 Anion Gap 11 BUN 9 D Creatinine 0.9 D Creat Clearance w eGFR > 60 Random Glucose 98 D Calcium 9.1 Magnesium 1.9 Total Bilirubin 0.5 D AST 42 H ALT 57 D Alkaline Phosphatase 179 H D Creatine Kinase 146 Troponin I < 0.02 Total Protein 8.6 H Albumin 4.0 Opiates Screen Methadone Screen Barbiturate Screen Phencyclidine Screen Ur Amphetamines Screen MDMA (Ecstasy) Screen Benzodiazepines Screen Cocaine Screen U Marijuana (THC) Screen Alcohol, Quantitative < 5.0 02/20/17 02/20/17 02/20/17 12:50 15:50 15:50 WBC 12.4 H D RBC 5.13 Hgb 14.9 Hct 44.5 MCV 86.8 MCHC 33.5 RDW 13.8 Plt Count 242 D MPV 8.1 Neutrophils % 76.3 Lymphocytes % 9.9 Monocytes % 9.6 Eosinophils % 3.2 Basophils % 1.0 INR Sodium Potassium Chloride Carbon Dioxide Anion Gap BUN Creatinine Creat Clearance w eGFR Random Glucose Calcium Magnesium Total Bilirubin AST ALT Alkaline Phosphatase Creatine Kinase 129 Troponin I < 0.02 Total Protein Albumin Opiates Screen Negative Methadone Screen Negative Barbiturate Screen Negative Phencyclidine Screen Negative Ur Amphetamines Screen Negative MDMA (Ecstasy) Screen Negative Benzodiazepines Screen Positive Cocaine Screen Negative U Marijuana (THC) Screen Negative Alcohol, Quantitative ASSESSMENT/PLAN: This is a 51 yo M with pmh of HTN (noncompliant with enalapril), psoriasis and ETOH abuse (in detox several times this yr last at [facility] 02/07-02/10) as well as cocaine and marijuana abuse, who present with complain of EtOH withdrawal including shakes and chest pain. EtOH withdrawal -librium protocol -thiamine, folate daily -IVF -Dr Davi Crespo consult -counseling on quitting HTN -resume enalapril at lower dose 10 Drug abuse -conaine, marijuana -counseled on quitting FEN NS@75 stabilize mag, phos na restricted diet Dispo: adm med [facility] Problem List - Problem (1) Alcohol dependence with withdrawal Code(s): F10.239 - ALCOHOL DEPENDENCE WITH WITHDRAWAL, UNSPECIFIED Qualifiers : Complication of substance-induced condition: with unspecified complication Qualified Code(s): F10.239 - Alcohol dependence with withdrawal, unspecified (2) Cocaine dependence, uncomplicated Code(s): F14.20 - COCAINE DEPENDENCE, UNCOMPLICATED (3) Cocaine abuse Code(s): F14.10 - COCAINE ABUSE, UNCOMPLICATED (4) Essential hypertension Code(s): I10 - ESSENTIAL (PRIMARY) HYPERTENSION (5) Psoriasis Code(s): L40.9 - PSORIASIS, UNSPECIFIED Visit type - Emergency Visit Emergency Visit: Yes ED Registration Date: 02/20/17 Care time: The patient presented to the Emergency Department on the above date and was hospitalized for further evaluation of their emergent condition. - New Patient This patient is new to me today: Yes Date on this admission: 02/20/17 - Critical Care Critical Care patient: No
[2017-02-20] MEDS ORDERED: chlordiazePOXIDE HCL 25 MG CAPSULE PO PRN (18:46)
--- NOTE | 2017-02-20 19:57 | PN ---
Teaching Attending Note Name of Resident: Areli Calero ATTENDING PHYSICIAN STATEMENT I saw and evaluated the patient. I reviewed the resident's note and discussed the case with the resident. I agree with the resident's findings and plan as documented. This is a 51 yo M with pmhx of HTN (noncompliant with enalapril), psoriasis and ETOH abuse, cocaine and marijuana abuse, who present with complain of EtOH withdrawal. Temperature 97.6 F 02/20/17 18:27 Pulse Rate 85 02/20/17 18:27 Respiratory Rate 18 02/20/17 18:27 Blood Pressure 155/99 02/20/17 18:27 O2 Sat by Pulse Oximetry (%) 97 02/20/17 18:27 CBCD WBC 12.4 K/mm3 (4.0-10.0) H D 02/20/17 12:50 RBC 5.13 M/mm3 (4.00-5.60) 02/20/17 12:50 Hgb 14.9 GM/dL (11.7-16.9) 02/20/17 12:50 Hct 44.5 % (35.4-49) 02/20/17 12:50 MCV 86.8 fl (80-96) 02/20/17 12:50 MCHC 33.5 g/dl (32.0-35.9) 02/20/17 12:50 RDW 13.8 % (11.9-15.9) 02/20/17 12:50 Plt Count 242 K/MM3 (134-434) D 02/20/17 12:50 MPV 8.1 fl (7.5-11.1) 02/20/17 12:50 CMP Sodium 138 mmol/L (136-145) 02/20/17 12:40 Potassium 4.6 mmol/L (3.5-5.1) 02/20/17 12:40 Chloride 100 mmol/L (98-107) 02/20/17 12:40 Carbon Dioxide 27 mmol/L (21-32) 02/20/17 12:40 Anion Gap 11 (8-16) 02/20/17 12:40 BUN 9 mg/dL (7-18) D 02/20/17 12:40 Creatinine 0.9 mg/dL (0.7-1.3) D 02/20/17 12:40 Creat Clearance w eGFR > 60 (>60) 02/20/17 12:40 Random Glucose 98 mg/dL (74-106) D 02/20/17 12:40 Calcium 9.1 mg/dL (8.5-10.1) 02/20/17 12:40 Total Bilirubin 0.5 mg/dL (0.2-1.0) D 02/20/17 12:40 AST 42 U/L (15-37) H 02/20/17 12:40 ALT 57 U/L (12-78) D 02/20/17 12:40 Alkaline Phosphatase 179 U/L (45-117) H D 02/20/17 12:40 Total Protein 8.6 g/dl (6.4-8.2) H 02/20/17 12:40 Albumin 4.0 g/dl (3.4-5.0) 02/20/17 12:40 CARDIAC ENZYMES Creatine Kinase 129 IU/L (39-308) 02/20/17 15:50 Troponin I < 0.02 ng/ml (0.00-0.05) 02/20/17 15:50 Current Medications Generic Name Dose Route Start Last Admin Trade Name Freq PRN Reason Stop Dose Admin Aspirin 81 mg 02/20/17 19:00 Ecotrin - PO DAILY LASHAUN Chlordiazepoxide HCl 50 mg 02/20/17 18:45 Librium - PO 02/21/17 12:01 Q6HPO LASHAUN Chlordiazepoxide HCl 25 mg 02/20/17 18:46 Librium - PO 02/21/17 12:01 Q6HPO PRN ANXIETY Enalapril Maleate 10 mg 02/20/17 19:00 Vasotec - PO DAILY LASHAUN Folic Acid 1 mg 02/21/17 10:00 Folic Acid - PO DAILY LASHAUN Folic Acid 1 mg/ Thiamine HCl 1,000 mls @ 125 mls/hr 02/20/17 13:24 02/20/17 15 :40 100 mg/ Multivitamins/Minerals IVPB 02/20/17 21:23 125 mls/hr 10 ml/ Sodium Chloride ONCE ONE Administration Sodium Chloride 1,000 mls @ 75 mls/hr 02/20/17 19:00 Normal Saline - IV ASDIR LASHAUN Pantoprazole Sodium 40 mg 02/21/17 10:00 Protonix - PO DAILY LASHAUN Thiamine HCl 100 mg 02/21/17 10:00 Vitamin B1 - PO DAILY [facility] Home Medications Medication Instructions Recorded Enalapril Maleate [Vasotec] 20 mg PO DAILY 12/31/16 Pantoprazole Sodium 40 mg PO DAILY 02/20/17 ASSESSMENT AND PLAN: This is a 51 yo M with pmhx of HTN (noncompliant with enalapril), psoriasis and ETOH abuse ,cocaine and marijuana abuse presented to ED due to having ETOH withdrawel. # EtOH withdrawal ;librium protocol ; thiamine, folate daily; Dr Davi Low for consult, banana bag , continue #HTN resume enalapril # Hx of Drug abuse ;conaine, marijuana dr.pierre low on consult DVT Px: Heparin sq
[2017-02-20] MEDS: ENALAPRIL MALEATE 10 MG TABLET (FP) PO SCH (21:05)
[2017-02-20] MEDS: ASPIRIN COATED 81 MG TABLET.EC PO SCH (21:05)
[2017-02-20] MEDS: SODIUM CHLORIDE 1,000 ML IV SCH (21:06)
[2017-02-20] MEDS: chlordiazePOXIDE HCL 25 MG CAPSULE PO SCH (21:06)
[2017-02-20 22:18] LABS: PHOSPHOROUS 3.2 mg/dL (2.5-4.9)
[2017-02-20 22:20] LABS: TROPONIN I < 0.02 ng/ml (0.00-0.05)
[2017-02-20 23:21] VITALS: BMI 28.3
[2017-02-21] MEDS: chlordiazePOXIDE HCL 25 MG CAPSULE PO SCH ×3 (00:39→11:59)
[2017-02-21] MEDS: GABAPENTIN 300 MG CAPSULE (FP) PO SCH ×3 (05:49→23:57)
--- NOTE | 2017-02-21 08:22 | PN ---
Physical Exam: SUBJECTIVE: Patient seen and examined Patient continues to have tremors. OBJECTIVE: Vital Signs Temperature 97.7 F 02/21/17 06:00 Pulse Rate 74 02/21/17 06:00 Respiratory Rate 18 02/21/17 06:00 Blood Pressure 138/93 02/21/17 06:00 O2 Sat by Pulse Oximetry (%) 98 02/20/17 23:07 GENERAL: The patient is awake, alert, and fully oriented, in no acute distress. HEAD: Normal with no signs of trauma. EYES: PERRL, extraocular movements intact, sclera anicteric, conjunctiva clear. ENT: Ears normal, oropharynx clear without exudates, moist mucous membranes. NECK: Trachea midline, full range of motion, supple. LUNGS: Breath sounds equal, clear to auscultation bilaterally, no wheezes, no crackles, no accessory muscle use. HEART: Regular rate and rhythm, S1, S2 without murmur, rub or gallop. ABDOMEN: Soft, nontender, nondistended, normoactive bowel sounds, no guarding, no rebound, no hepatosplenomegaly, no masses. EXTREMITIES: 2+ pulses, warm, well-perfused, no edema. positive for tremor NEUROLOGICAL: Cranial nerves II through XII grossly intact. Normal speech, gait is stable. PSYCH: Normal mood, normal affect. SKIN: Warm, dry, normal turgor, no rashes or lesions noted CBCD WBC 9.0 K/mm3 (4.0-10.0) 02/21/17 06:48 RBC 4.66 M/mm3 (4.00-5.60) 02/21/17 06:48 Hgb 13.7 GM/dL (11.7-16.9) 02/21/17 06:48 Hct 40.3 % (35.4-49) 02/21/17 06:48 MCV 86.4 fl (80-96) 02/21/17 06:48 MCHC 33.9 g/dl (32.0-35.9) 02/21/17 06:48 RDW 13.7 % (11.9-15.9) 02/21/17 06:48 Plt Count 202 K/MM3 (134-434) 02/21/17 06:48 MPV 7.8 fl (7.5-11.1) 02/21/17 06:48 CMP Sodium 140 mmol/L (136-145) 02/21/17 06:48 Potassium 4.2 mmol/L (3.5-5.1) 02/21/17 06:48 Chloride 106 mmol/L (98-107) 02/21/17 06:48 Carbon Dioxide 27 mmol/L (21-32) 02/21/17 06:48 Anion Gap 7 (8-16) L 02/21/17 06:48 BUN 11 mg/dL (7-18) D 02/21/17 06:48 Creatinine 0.8 mg/dL (0.7-1.3) 02/21/17 06:48 Creat Clearance w eGFR > 60 (>60) 02/20/17 12:40 Random Glucose 99 mg/dL (74-106) 02/21/17 06:48 Calcium 8.8 mg/dL (8.5-10.1) 02/21/17 06:48 Total Bilirubin 0.5 mg/dL (0.2-1.0) D 02/20/17 12:40 AST 42 U/L (15-37) H 02/20/17 12:40 ALT 57 U/L (12-78) D 02/20/17 12:40 Alkaline Phosphatase 179 U/L (45-117) H D 02/20/17 12:40 Total Protein 8.6 g/dl (6.4-8.2) H 02/20/17 12:40 Albumin 4.0 g/dl (3.4-5.0) 02/20/17 12:40 CARDIAC ENZYMES Creatine Kinase 129 IU/L (39-308) 02/20/17 15:50 Troponin I < 0.02 ng/ml (0.00-0.05) 02/20/17 21:00 Laboratory Results - last 24 hr 02/20/17 21:00 Phosphorus 3.2 Troponin I < 0.02 Active Medications Generic Name Dose Route Start Last Admin Trade Name eDb PRN Reason Stop Dose Admin Aspirin 81 mg 02/20/17 19:00 02/20/17 21:05 Ecotrin - PO 81 mg DAILY LASHAUN Administration Chlordiazepoxide HCl 50 mg 02/20/17 18:45 02/21/17 05:49 Librium - PO 02/21/17 12:01 50 mg Q6HPO LASHAUN Administration Chlordiazepoxide HCl 25 mg 02/20/17 18:46 Librium - PO 02/21/17 12:01 Q6HPO PRN ANXIETY Enalapril Maleate 10 mg 02/20/17 19:00 02/20/17 21:05 Vasotec - PO 10 mg DAILY LASHAUN Administration Folic Acid 1 mg 02/21/17 10:00 Folic Acid - PO DAILY LASHAUN Gabapentin 300 mg 02/21/17 06:00 02/21/17 05:49 Neurontin - PO 300 mg TID LASHAUN Administration Sodium Chloride 1,000 mls @ 75 mls/hr 02/20/17 19:00 02/20/17 21:06 Normal Saline - IV 75 mls/hr ASDIR LASHAUN Administration Pantoprazole Sodium 40 mg 02/21/17 10:00 Protonix - PO DAILY LASHAUN Thiamine HCl 100 mg 02/21/17 10:00 Vitamin B1 - PO DAILY [facility] Home Medications Medication Instructions Recorded Enalapril Maleate [Vasotec] 20 mg PO DAILY 12/31/16 Diphenhydramine [Benadryl -] 50 mg PO HS PRN 02/20/17 Folic Acid 1 mg PO DAILY 02/20/17 Gabapentin [Neurontin] 300 mg PO TID 02/20/17 Pantoprazole Sodium 40 mg PO DAILY 02/20/17 Thiamine Mononitrate [Vitamin B-1] 100 mg PO DAILY 02/20/17 ASSESSMENT/PLAN: This is a 51 yo M with pmhx of HTN (noncompliant with enalapril), psoriasis and ETOH abuse, cocaine and marijuana abuse presented to ED due to having ETOH withdrawel. # EtOH withdrawal continue librium protocol ; thiamine, folate daily; Dr Davi Low for consult, banana bag #HTN resume enalapril # Hx of Drug abuse ;cocaine, marijuana dr.pierre low on consult DVt Px :early ambulation Visit type - Emergency Visit Emergency Visit: Yes ED Registration Date: 02/20/17 Care time: The patient presented to the Emergency Department on the above date and was hospitalized for further evaluation of their emergent condition. - New Patient This patient is new to me today: No - Critical Care Critical Care patient: No
[2017-02-21 08:38] LABS: MCH 29.3 pg (25.7-33.7); MCHC 33.9 g/dl (32.0-35.9); MEAN CELL VOLUME 86.4 fl (80-96); MEAN PLT VOLUME 7.8 fl (7.5-11.1); PLATELET COUNT 202 K/MM3 (134-434); RDW 13.7 % (11.9-15.9)
[2017-02-21 09:00] LABS: CALCIUM 8.8 mg/dL (8.5-10.1); COCKROFT - GAULT 124.66; CREATININE 0.8 mg/dL (0.7-1.3); MAGNESIUM 2.1 mg/dL (1.8-2.4); PHOSPHOROUS 3.1 mg/dL (2.5-4.9)
[2017-02-21] MEDS: THIAMINE HCL 100 MG TABLET (FP) PO SCH (09:04)
[2017-02-21] MEDS: ASPIRIN COATED 81 MG TABLET.EC PO SCH (09:04)
[2017-02-21] MEDS: FOLIC ACID 1 MG TABLET (FP) PO SCH (09:04)
[2017-02-21] MEDS: ENALAPRIL MALEATE 10 MG TABLET (FP) PO SCH (09:04)
[2017-02-21] MEDS: PANTOPRAZOLE 40 MG TABLET (FP) PO SCH (09:04)
--- NOTE | 2017-02-21 11:22 | EKG ---
Test Reason : Blood Pressure : / mmHG Vent. Rate : 090 BPM Atrial Rate : 090 BPM P-R Int : 130 ms QRS Dur : 094 ms QT Int : 356 ms P-R-T Axes : 063 016 050 degrees QTc Int : 435 ms NORMAL SINUS RHYTHM POSSIBLE LEFT ATRIAL ENLARGEMENT BORDERLINE ECG WHEN COMPARED WITH ECG OF 01-JAN-2017 07:37, NO SIGNIFICANT CHANGE WAS FOUND Confirmed by ANUSHA GLASS MD ([id number]) on 02/21/2017 11:22:28 AM Referred By: Confirmed By:ANUSHA GLASS MD
[2017-02-21] MEDS: SODIUM CHLORIDE 1,000 ML IV SCH (20:07)
[2017-02-21] MEDS ORDERED: PT OWN MED DRAWER 7, Y5N ONE (23:55)
[2017-02-21] MEDS: CLOBETASOL 0.05% CREAM TP SCH (23:57)
[2017-02-22] MEDS: GABAPENTIN 300 MG CAPSULE (FP) PO SCH ×3 (06:56→21:53)
[2017-02-22] MEDS ORDERED: chlordiazePOXIDE 5 MG CAPSULE PO PRN (07:50)
[2017-02-22] MEDS: THIAMINE HCL 100 MG TABLET (FP) PO SCH (09:27)
[2017-02-22] MEDS: chlordiazePOXIDE HCL 25 MG CAPSULE PO SCH ×3 (09:27→17:19)
[2017-02-22] MEDS: SODIUM CHLORIDE 1,000 ML IV SCH (09:27)
[2017-02-22] MEDS: CLOBETASOL 0.05% CREAM TP SCH ×2 (09:27→21:53)
[2017-02-22] MEDS: PANTOPRAZOLE 40 MG TABLET (FP) PO SCH (09:27)
[2017-02-22] MEDS: FOLIC ACID 1 MG TABLET (FP) PO SCH (09:27)
[2017-02-22] MEDS: ENALAPRIL MALEATE 10 MG TABLET (FP) PO SCH (09:27)
[2017-02-22] MEDS: ASPIRIN COATED 81 MG TABLET.EC PO SCH (09:27)
--- NOTE | 2017-02-22 11:18 | PN ---
Physical Exam: SUBJECTIVE: Patient seen and examined Resting in bed NAD. Afebrile and hemodynamically stable. No events. Still has tremors, some diaphoresis, anxiety, lightheadedness and trouble sleeping. no nausea or diarrhea. Denies chest pain, palpitations, sob, and pain, Denies SZ or hallucinations. OBJECTIVE: Vital Signs Period Temp Pulse Resp BP Sys/Estrada Pulse Ox Last 24 Hr 97.3 F-97.7 F 72-82 18-20 138-145/76-97 98 GENERAL: Awake, alert, and fully oriented, in no acute distress. HEAD: Normal with no signs of trauma. EYES: Pupils equal, round and reactive to light, extraocular movements intact, sclera anicteric, conjunctiva clear. No lid lag., mild hor nystagmus EARS, NOSE, THROAT: Moist mucous membranes. NECK: supple without JVD LUNGS: mild bibasilar crackles HEART: Regular rate and rhythm, normal S1 and S2 grade 2 syst ej murmur, split s1 ABDOMEN: Soft, nontender, not distended, normoactive bowel sounds, no guarding, no rebound, no masses. mild hepatomegaly MUSCULOSKELETAL: No CVA tenderness. UPPER EXTREMITIES: 2+ pulses, warm, well-perfused. No cyanosis. No clubbing. No peripheral edema. + tremors LOWER EXTREMITIES: 2+ pulses, warm, well-perfused. No calf tenderness. No peripheral edema. NEUROLOGICAL: Cranial nerves II-XII grossly intact. Normal speech. PSYCHIATRIC: Cooperative. Good eye contact. Appropriate mood and affect. SKIN: Warm, dry diffuse psoriasis on back, trunk, legs Active Medications Generic Name Dose Route Start Last Admin Trade Name Freq PRN Reason Stop Dose Admin Aspirin 81 mg 02/20/17 19:00 02/22/17 09:27 Ecotrin - PO 81 mg DAILY LASHAUN Administration Chlordiazepoxide HCl 25 mg 02/22/17 08:00 02/22/17 09:27 Librium - PO 02/23/17 00:01 25 mg Q6HPO LASHAUN Administration Chlordiazepoxide HCl 15 mg 02/22/17 07:50 Librium - PO 02/26/17 07:49 Q6HPO PRN ANXIETY Enalapril Maleate 10 mg 02/20/17 19:00 02/22/17 09:27 Vasotec - PO 10 mg DAILY LASHAUN Administration Folic Acid 1 mg 02/21/17 10:00 02/22/17 09:27 Folic Acid - PO 1 mg DAILY LASHAUN Administration Gabapentin 300 mg 02/21/17 06:00 02/22/17 06:56 Neurontin - PO 300 mg TID LASHAUN Administration Sodium Chloride 1,000 mls @ 75 mls/hr 02/20/17 19:00 02/22/17 09:27 Normal Saline - IV 75 mls/hr ASDIR LASHAUN Administration Clobetasol 0.05% 1 each 02/21/17 22:00 02/22/17 09:27 Cream TP 1 each BID LASHAUN Administration Pantoprazole Sodium 40 mg 02/21/17 10:00 02/22/17 09:27 Protonix - PO 40 mg DAILY LASHAUN Administration Thiamine HCl 100 mg 02/21/17 10:00 02/22/17 09:27 Vitamin B1 - PO 100 mg DAILY LASHAUN Administration ASSESSMENT/PLAN: This is a 51 yo M with pmh of HTN (noncompliant with enalapril), psoriasis and ETOH abuse (in detox several times this yr last at [facility] 02/07-02/10) as well as cocaine and marijuana abuse, who present with complain of EtOH withdrawal including shakes and chest pain. EtOH withdrawal -librium protocol -thiamine, folate daily -IVF -Dr Davi Crespo consult -counseling on quitting HTN -resume enalapril 10, february increase to 20 tomorrow Drug abuse -conaine, marijuana -counseled on quitting L forearm phlebitis -warm compress FEN NS@75 stabilize mag, phos na restricted diet Dispo: med [facility] Problem List - Problems (1) Alcohol dependence with withdrawal Code(s): F10.239 - ALCOHOL DEPENDENCE WITH WITHDRAWAL, UNSPECIFIED Qualifiers : Complication of substance-induced condition: with unspecified complication Qualified Code(s): F10.239 - Alcohol dependence with withdrawal, unspecified (2) Cocaine dependence, uncomplicated Code(s): F14.20 - COCAINE DEPENDENCE, UNCOMPLICATED (3) Cocaine abuse Code(s): F14.10 - COCAINE ABUSE, UNCOMPLICATED (4) Essential hypertension Code(s): I10 - ESSENTIAL (PRIMARY) HYPERTENSION (5) Psoriasis Code(s): L40.9 - PSORIASIS, UNSPECIFIED Visit type - Emergency Visit Emergency Visit: Yes ED Registration Date: 02/20/17 Care time: The patient presented to the Emergency Department on the above date and was hospitalized for further evaluation of their emergent condition. - New Patient This patient is new to me today: No - Critical Care Critical Care patient: No - Discharge Referral Referred to [facility] No
--- NOTE | 2017-02-22 15:01 | PN ---
Teaching Attending Note Name of Resident: Areli Calero ATTENDING PHYSICIAN STATEMENT I saw and evaluated the patient. I reviewed the resident's note and discussed the case with the resident. I agree with the resident's findings and plan as documented. Patient is comfortable but still having tremors Vital Signs Temperature 97.9 F 02/22/17 14:33 Pulse Rate 85 02/22/17 14:33 Respiratory Rate 17 02/22/17 14:33 Blood Pressure 158/87 02/22/17 14:33 O2 Sat by Pulse Oximetry (%) 98 02/21/17 21:00 CBCD WBC 9.0 K/mm3 (4.0-10.0) 02/21/17 06:48 RBC 4.66 M/mm3 (4.00-5.60) 02/21/17 06:48 Hgb 13.7 GM/dL (11.7-16.9) 02/21/17 06:48 Hct 40.3 % (35.4-49) 02/21/17 06:48 MCV 86.4 fl (80-96) 02/21/17 06:48 MCHC 33.9 g/dl (32.0-35.9) 02/21/17 06:48 RDW 13.7 % (11.9-15.9) 02/21/17 06:48 Plt Count 202 K/MM3 (134-434) 02/21/17 06:48 MPV 7.8 fl (7.5-11.1) 02/21/17 06:48 CMP Sodium 140 mmol/L (136-145) 02/21/17 06:48 Potassium 4.2 mmol/L (3.5-5.1) 02/21/17 06:48 Chloride 106 mmol/L (98-107) 02/21/17 06:48 Carbon Dioxide 27 mmol/L (21-32) 02/21/17 06:48 Anion Gap 7 (8-16) L 02/21/17 06:48 BUN 11 mg/dL (7-18) D 02/21/17 06:48 Creatinine 0.8 mg/dL (0.7-1.3) 02/21/17 06:48 Creat Clearance w eGFR > 60 (>60) 02/20/17 12:40 Random Glucose 99 mg/dL (74-106) 02/21/17 06:48 Calcium 8.8 mg/dL (8.5-10.1) 02/21/17 06:48 Total Bilirubin 0.5 mg/dL (0.2-1.0) D 02/20/17 12:40 AST 42 U/L (15-37) H 02/20/17 12:40 ALT 57 U/L (12-78) D 02/20/17 12:40 Alkaline Phosphatase 179 U/L (45-117) H D 02/20/17 12:40 Total Protein 8.6 g/dl (6.4-8.2) H 02/20/17 12:40 Albumin 4.0 g/dl (3.4-5.0) 02/20/17 12:40 CARDIAC ENZYMES Creatine Kinase 129 IU/L (39-308) 02/20/17 15:50 Troponin I < 0.02 ng/ml (0.00-0.05) 02/20/17 21:00 Current Medications Generic Name Dose Route Start Last Admin Trade Name Freq PRN Reason Stop Dose Admin Aspirin 81 mg 02/20/17 19:00 02/22/17 09:27 Ecotrin - PO 81 mg DAILY LASHAUN Administration Chlordiazepoxide HCl 25 mg 02/22/17 08:00 02/22/17 11:36 Librium - PO 02/23/17 00:01 25 mg Q6HPO LASHAUN Administration Chlordiazepoxide HCl 15 mg 02/22/17 07:50 Librium - PO 02/26/17 07:49 Q6HPO PRN ANXIETY Enalapril Maleate 10 mg 02/20/17 19:00 02/22/17 09:27 Vasotec - PO 10 mg DAILY LASHAUN Administration Folic Acid 1 mg 02/21/17 10:00 02/22/17 09:27 Folic Acid - PO 1 mg DAILY LASHAUN Administration Gabapentin 300 mg 02/21/17 06:00 02/22/17 13:02 Neurontin - PO 300 mg TID LASHAUN Administration Sodium Chloride 1,000 mls @ 75 mls/hr 02/20/17 19:00 02/22/17 09:27 Normal Saline - IV 75 mls/hr ASDIR LASHAUN Administration Clobetasol 0.05% 1 each 02/21/17 22:00 02/22/17 09:27 Cream TP 1 each BID LASHAUN Administration Pantoprazole Sodium 40 mg 02/21/17 10:00 02/22/17 09:27 Protonix - PO 40 mg DAILY LASHAUN Administration Thiamine HCl 100 mg 02/21/17 10:00 02/22/17 09:27 Vitamin B1 - PO 100 mg DAILY LASHAUN Administration Home Medications Medication Instructions Recorded Enalapril Maleate [Vasotec] 20 mg PO DAILY 12/31/16 Diphenhydramine [Benadryl -] 50 mg PO HS PRN 02/20/17 Folic Acid 1 mg PO DAILY 02/20/17 Gabapentin [Neurontin] 300 mg PO TID 02/20/17 Pantoprazole Sodium 40 mg PO DAILY 02/20/17 Thiamine Mononitrate [Vitamin B-1] 100 mg PO DAILY 02/20/17 ASSESSMENT AND PLAN: This is a 51 yo M with pmhx of HTN (noncompliant with enalapril), psoriasis and ETOH abuse, cocaine and marijuana abuse presented to ED due to having ETOH withdrawel. # EtOH withdrawal continue librium protocol on 15mg today with 25mg prn ; thiamine, folate daily; Dr Davi Low consulted #HTN resume enalapril # Hx of Drug abuse ;cocaine, marijuana dr.pierre low on consult # Hx of Psoriasis , patient is using hie medication from home DVt Px :ambulation
[2017-02-22] MEDS ORDERED: PT OWN MED DRAWER 7, Y5N ONE (21:19)
[2017-02-23] MEDS: SODIUM CHLORIDE 1,000 ML IV SCH (00:29)
[2017-02-23] MEDS: chlordiazePOXIDE HCL 25 MG CAPSULE PO SCH (00:30)
[2017-02-23] MEDS: TRIAMCINOLONE ACET 0.025% CREAM 15 GM TUBE TP SCH ×2 (03:41→10:07)
[2017-02-23] MEDS: GABAPENTIN 300 MG CAPSULE (FP) PO SCH (06:44)
[2017-02-23] MEDS ORDERED: ENALAPRIL MALEATE 10 MG TABLET (FP) PO SCH (07:56)
[2017-02-23] MEDS ORDERED: chlordiazePOXIDE 5 MG CAPSULE PO SCH ×2 (08:00→22:00)
[2017-02-23] MEDS ORDERED: PT OWN MED DRAWER 7, Y5N ONE (09:51)
[2017-02-23] MEDS: PANTOPRAZOLE 40 MG TABLET (FP) PO SCH (10:06)
[2017-02-23] MEDS: THIAMINE HCL 100 MG TABLET (FP) PO SCH (10:06)
[2017-02-23] MEDS: ASPIRIN COATED 81 MG TABLET.EC PO SCH (10:06)
[2017-02-23] MEDS: FOLIC ACID 1 MG TABLET (FP) PO SCH (10:06)
[2017-02-23] MEDS: CLOBETASOL 0.05% CREAM TP SCH (10:07)
--- NOTE | 2017-02-23 10:35 | PN ---
Teaching Attending Note Name of Resident: Areli Calero ATTENDING PHYSICIAN STATEMENT I saw and evaluated the patient. I reviewed the resident's note and discussed the case with the resident. I agree with the resident's findings and plan as documented. SUBJECTIVE: He is comfortable and without complaints. He would like to discuss senior care rehabilitation with his and case management/social work. OBJECTIVE: Vitals noted He is well appearing ASSESSMENT AND PLAN: No signs of ongoing withdrawal Taper Librium Anticipate discharge today Further details per resident note
[2017-02-23] MEDS ORDERED: chlordiazePOXIDE 5 MG CAPSULE PO PRN (10:51)
[2017-02-23 13:23] VITALS: BP 135/72; PULSE 88; TEMP 98.1
--- NOTE | 2017-02-23 13:31 | DS ---
Physical Exam: SUBJECTIVE: Patient seen and examined Resting in bed NAD. Afebrile and hemodynamically stable. No events. very mild tremors, no diaphoresis, anxiety, lightheadedness and or trouble sleeping. no nausea or diarrhea. Denies chest pain, palpitations, sob, and pain, Denies SZ or hallucinations. OBJECTIVE: Vital Signs Period Temp Pulse Resp BP Sys/Estrada Pulse Ox Last 24 Hr 97.6 F-98.4 F 76-88 17-20 135-158/72-96 98 PHYSICAL EXAM GENERAL: Awake, alert, and fully oriented, in no acute distress. HEAD: Normal with no signs of trauma. EYES: Pupils equal, round and reactive to light, extraocular movements intact, sclera anicteric, conjunctiva clear. No lid lag., mild hor nystagmus EARS, NOSE, THROAT: Moist mucous membranes. NECK: supple without JVD LUNGS: mild bibasilar crackles HEART: Regular rate and rhythm, normal S1 and S2 grade 2 syst ej murmur, split s1 ABDOMEN: Soft, nontender, not distended, normoactive bowel sounds, no guarding, no rebound, no masses. mild hepatomegaly MUSCULOSKELETAL: No CVA tenderness. UPPER EXTREMITIES: 2+ pulses, warm, well-perfused. No cyanosis. No clubbing. No peripheral edema. + tremors LOWER EXTREMITIES: 2+ pulses, warm, well-perfused. No calf tenderness. No peripheral edema. NEUROLOGICAL: Cranial nerves II-XII grossly intact. Normal speech. PSYCHIATRIC: Cooperative. Good eye contact. Appropriate mood and affect. SKIN: Warm, dry diffuse psoriasis on back, trunk, legs LABS HOSPITAL COURSE: Date of Admission:02/20/17 This is a 51 yo M with pmh of HTN (noncompliant with enalapril), psoriasis and ETOH abuse (in detox several times this yr last at [facility] 02/07-02/10) as well as cocaine and marijuana abuse, who present with complain of EtOH withdrawal including shakes and chest pain. He states his last drink was last night, at which time he drank 3 40's and 2 22 oz beers. He drinks daily. He needs to stop drinking because of housing placement requirement and now he lives in homeless shelters. He was denied admission to [facility] yesterday because of insurance issue. he reports having intermittent reproducible chest pain yesterday but not today. He also reports tremors, anxiety and diaphoresis. He denies diarrhea, n/v , sz of hallucination. He has never had a sz or hallucination. he has a chronic dry cough. He denies sob, dizziness, h/a, dysuria, constipation. Last cocaine use 1 w ago. Patient completed EtOH detox with librium and was discharged to attend a care home rehab program. He was prescrined vitamins including thiamine , asa 81 and enalapril 20d. Date of Discharge: 02/23/17 Minutes to complete discharge: 45 (na) Discharge Summary Reason For Visit: ALCOHOL DEPENDENCE WITH WITHDRAWAL Current Active Problems Alcohol dependence with withdrawal (Acute) Condition: Stable - Instructions Diet, Activity, Other Instructions: You were in the hospital due to alcohol withdrawal. You completed Librium detox. Please refrain from drinking and drugs and follow up with a rehab program. Follow up with primary care doctor in a week for further support. Continue taking your enalapril blood pressure medication and daily baby aspirin , take daily vitamins. We sent prescriptions to your pharmacy. Return to hospital if symptoms worsen. Referrals: Karlie Falcon [Primary Care Provider] - 1 Week Disposition: HOME - Home Medications Comprehensive Discharge Medication List: Ambulatory Orders Enalapril Maleate [Vasotec] 20 mg PO DAILY 12/31/16 Diphenhydramine [Benadryl Capsule -] 50 mg PO HS PRN 02/20/17 Folic Acid 1 mg PO DAILY 02/20/17 Gabapentin [Neurontin] 300 mg PO TID 02/20/17 Pantoprazole Sodium 40 mg PO DAILY 02/20/17 Thiamine Mononitrate [Vitamin B-1] 100 mg PO DAILY 02/20/17 Aspirin Coated [Ecotrin -] 81 mg PO DAILY #30 tab 02/23/17 Enalapril Maleate [Vasotec -] 20 mg PO DAILY #30 tablet 02/23/17 Folic Acid - 1 mg PO DAILY #30 tablet 02/23/17 Triamcinolone 0.025% Cream [Aristocort 0.025% Cream -] 1 gm TP BID #2 tube 02/23 Problem List - Problems (1) Alcohol dependence with withdrawal Code(s): F10.239 - ALCOHOL DEPENDENCE WITH WITHDRAWAL, UNSPECIFIED Qualifiers : Complication of substance-induced condition: with unspecified complication Qualified Code(s): F10.239 - Alcohol dependence with withdrawal, unspecified (2) Cocaine dependence, uncomplicated Code(s): F14.20 - COCAINE DEPENDENCE, UNCOMPLICATED (3) Cocaine abuse Code(s): F14.10 - COCAINE ABUSE, UNCOMPLICATED (4) Essential hypertension Code(s): I10 - ESSENTIAL (PRIMARY) HYPERTENSION (5) Psoriasis Code(s): L40.9 - PSORIASIS, UNSPECIFIED This patient is new to me today: No Emergency Visit: Yes ED Registration Date: 02/20/17 Care time: The patient presented to the Emergency Department on the above date and was hospitalized for further evaluation of their emergent condition. Critical Care patient: No - Discharge Referral Referred to [facility] No
== END 2017-02-23 13:59 | disposition home or self-care (01) | DRG 774 ==
LOC: JER 10:43 → JERBED 17:48 → J5S 19:01
PROVIDERS: ADMIT Internal Medicine; ATTEND Internal Medicine
PROC: HZ2ZZZZ Detoxification Services for Substance Abuse Treatment (ICD-10-PCS; principal; 2017-02-20)
DX: F10.239 Alcohol dependence with withdrawal, unspecified (principal); F14.10 Cocaine abuse, uncomplicated; I10 Essential (primary) hypertension; L40.9 Psoriasis, unspecified; F12.10 Cannabis abuse, uncomplicated; I80.9 Phlebitis and thrombophlebitis of unspecified site; R07.89 Other chest pain; Z91.19 Patient's noncompliance with other medical treatment and regimen; Z59.0 Homelessness
CPT/HCPCS: 36415; 71020-TC; 80048; 80053; 80307; 82550; 83735; 84100; 84484; 85025; 85027; 85610; 93005; 93010; 99284-25